=== PATIENT | male | born 1960 | race Two or more races ===

== ENCOUNTER 2024-04-22 05:21 | Inpatient (IN) | payer OTHER ==
[2024-04-15 09:26] LABS: HEMATOCRIT 40.4 % (39.0-48.0); HEMOGLOBIN 13.5 g/dL (13-16.00); MEAN CELL VOLUME 88.1 fL (80.0-100.00); MEAN CORPUSCULAR HEMOGLOBIN 29.5 pg (27.00-32.0); MEAN CORPUSCULAR HGB CONC 33.5 g/dl (32.0-36.0); PLATELET COUNT 233 K/uL (150-450); RED BLOOD COUNT 4.59 M/uL (4.00-6.00); RED CELL DISTRIBUTION WIDTH 13.2 % (11.5-14.5)
[2024-04-15 10:01] LABS: INR < 0.93; PARTIAL THROMBOPLASTIN TIME 27.4 SECONDS (22.0-34.0); PROTHROMBIN TIME 9.8 SECONDS (9.0-11.5)
[2024-04-15 10:20] LABS: CALCIUM 9.6 mg/dL (8.5-10.1); CREATININE SERUM 0.89 mg/dL (0.70-1.30); GFR 86.9; POTASSIUM 4.34 mEq/L (3.5-5.1)
[2024-04-15 10:23] LABS: URINE APPEARANCE Clear; URINE BILIRRUBIN Negative (NEGATIVE); URINE BLOOD Negative; URINE COLOR Yellow; URINE GLUCOSE Negative (NEGATIVE); URINE LEUKOCYTE Negative; URINE NITRATE Negative; URINE PROTEIN Negative (NEGATIVE); URINE UROBILINOGEN 0.2 E.U./dl
[2024-04-15 10:28] LABS: URINE BACTERIA 8.8 uL (0.0-1933); URINE RBC 19.9 uL (0.0-20.8); URINE WBC 2.7 uL (0.0-23.2)
[~2024-04-22] VITALS: Ht 185.4 cm; Wt 204.6 kg
[~2024-04-22 05:21] MED LIST: CLONAZEPAM0.25 MG
[2024-04-22] MEDS ORDERED: CEFAZOLIN SODIUM 1,000 MG VIAL ONE ×2 (06:30→19:34)
[2024-04-22] MEDS ORDERED: ENOXAPARIN SODIUM 40 MG/0.4 ML SYRINGE SUBCUTANEO ONE ×2 (06:30→09:30)
[2024-04-22] MEDS ORDERED: BUPIVACAINE HCL/MPF 0.5% 30ML VIAL ONE (08:05)
[2024-04-22] MEDS ORDERED: LIDOCAINE HCL 1%/EPINEPHRINE 20ML VIAL IJ ONE ×2 (08:05→09:30)
[2024-04-22] MEDS ORDERED: HEMOSTATIC MATRIX 1 KIT KIT TOP ONE ×2 (09:21→09:30)
[2024-04-22] MEDS ORDERED: SURGIFLO APPLICATOR 1 EACH APPL TOP ONE ×2 (09:22→09:30)
[2024-04-22] MEDS ORDERED: BUPIVACAINE HCL 30 ML VIAL IJ ONE (09:30)
[2024-04-22] MEDS ORDERED: CEFAZOLIN SODIUM 1,000 MG VIAL IV ONE (09:30)
[2024-04-22] MEDS ORDERED: SUGAMMADEX SODIUM 200 MG/2 ML VIAL IV ONE (10:23)
[2024-04-22] MEDS ORDERED: OxyCODONE HCL/APAP UD (PERCOCET) PO PRN (13:15)
[2024-04-22] MEDS ORDERED: RINGERS SOLUTION,LACTATED 1,000 ML IV SCH (13:15)
[2024-04-22] MEDS ORDERED: ONDANSETRON HCL 2 MG/ML VIAL IV PRN (13:15)
[2024-04-22] MEDS ORDERED: KETOROLAC TROMETHAMINE 30 MG VIAL ONE (16:01)
[2024-04-22] MEDS ORDERED: GABAPENTIN 300 MG CAPSULE PO SCH (17:00)
[2024-04-22] MEDS ORDERED: POLYETHYLENE GLYCOL 3350 17 GM BLIST.PACK PO SCH (17:00)
[2024-04-22] MEDS ORDERED: KETOROLAC TROMETHAMINE 30 MG VIAL IU SCH (17:00)
[2024-04-22] MEDS ORDERED: CEFAZOLIN SODIUM 1,000 MG VIAL IV SCH (18:00)
[2024-04-22] MEDS ORDERED: ENALAPRILAT DIHYDRATE 1.25 MG/ML VIAL IV ONE (19:34)
[2024-04-22] MEDS ORDERED: ENALAPRILAT DIHYDRATE 1.25 MG/ML VIAL IV PRN (19:45)
[2024-04-22] MEDS ORDERED: FAMOTIDINE/PF 20 MG/2 ML VIAL IV SCH (21:00)
[2024-04-22] MEDS ORDERED: CLONAZEPAM 0.5 MG TABLET PO SCH (21:00)
[2024-04-23 07:57] LABS: HEMOGLOBIN 11.4 g/dL (13-16.00); MEAN CELL VOLUME 85.8 fL (80.0-100.00); MEAN CORPUSCULAR HEMOGLOBIN 29.6 pg (27.00-32.0); MEAN CORPUSCULAR HGB CONC 34.5 g/dl (32.0-36.0); PLATELET COUNT 194 K/uL (150-450); RED BLOOD COUNT 3.85 M/uL (4.00-6.00)
[2024-04-23 08:45] LABS: ALBUMIN 3.3 gm/dL (3.4-5.0); CALCIUM 8.7 mg/dL (8.5-10.1); CREATININE SERUM 0.81 mg/dL (0.70-1.30); GFR 96.88; PHOSPHOROUS 2.7 mg/dL (2.5-4.9); POTASSIUM 3.96 mEq/L (3.5-5.1)
[2024-04-23] MEDS ORDERED: ENOXAPARIN SODIUM 40 MG/0.4 ML SYRINGE SUBCUTANEO SCH (09:00)
[2024-04-23] MEDS ORDERED: LOSARTAN POTASSIUM 50 MG TABLET PO SCH (09:37)
== END 2024-04-23 11:48 | disposition home or self-care (01) | DRG 708 ==
LOC: CIR.AMB 05:21 → O/R 13:28 → SURG 14:26
PROVIDERS: ADMIT Urology; ATTEND Urology
PROC: 8E0W4CZ Robotic Assisted Procedure of Trunk Region, Percutaneous Endoscopic Approach (ICD-10-PCS; 2024-04-22)
PROC: 0VT04ZZ Resection of Prostate, Percutaneous Endoscopic Approach (ICD-10-PCS; principal; 2024-04-22 07:00)
DX: C61 Malignant neoplasm of prostate (principal); Z20.822 Contact with and (suspected) exposure to COVID-19
CPT/HCPCS: 55866; S2900

== ENCOUNTER 2024-04-27 10:06 | Inpatient (IN) | payer OTHER ==
[~2024-04-27] VITALS: Ht 185.4 cm; Wt 90.7 kg
--- NOTE | 2024-04-27 10:20 | NUR ---
PACIENTE ALERTA Y ORIENTADO X3. REFIERE VENIR POR FIEBRE, TUVO CARISSA OPERACION EL MayIEMBRE DE REMOCION DE PROSTATA Y DR. EASON LES ORDENO QUE EN SHANIA DE PRESENTAR FIEBRE, VENIR A ER Y COMUNICARSE CON EL. SE ESTIMAN VITALES Y SE UBICA.
[2024-04-27] MEDS ORDERED: PIPERACILLIN/TAZOBACTAM SODIUM 3.375 GM VIAL IV ONE ×2 (11:00→11:03)
--- NOTE | 2024-04-27 11:29 | NUR ---
SE EDUCA A PTE SOBRE TX A RECIBIR EN EL AREA EL MISMO REFIERE ENTENDER. SE REALIZAN MUESTRAS BAJO MEDIDAS ASEPTICAS. SE CANALIZA PTE Y SE ADMINSITRA MEDIACION AMAYA ORDEN MEDICA. SE THAD PTE EN ESPERA DE RESULTADOS.
[2024-04-27 11:44] LABS: HEMATOCRIT 33.1 % (39.0-48.0); HEMOGLOBIN 11.3 g/dL (13-16.00); MEAN CELL VOLUME 87.1 fL (80.0-100.00); MEAN CORPUSCULAR HEMOGLOBIN 29.8 pg (27.00-32.0); MEAN CORPUSCULAR HGB CONC 34.2 g/dl (32.0-36.0); PLATELET COUNT 289 K/uL (150-450); RED CELL DISTRIBUTION WIDTH 12.6 % (11.5-14.5)
[2024-04-27] MEDS ORDERED: 0.9 % SODIUM CHLORIDE 1,000 ML IV SCH ×2 (12:00→19:45)
[2024-04-27 12:31] LABS: ALBUMIN 3.8 gm/dL (3.4-5.0); BILIRUBIN TOTAL 1.52 mg/dL (0.3-1.2); CALCIUM 9.6 mg/dL (8.5-10.1); CREATININE SERUM 0.82 mg/dL (0.70-1.30); GFR 95.51; GLOBULINA 4.2 G/DL (2.4-3.5); POTASSIUM 4.25 mEq/L (3.5-5.1)
[2024-04-27 12:47] LABS: PH,URINE 6.5 (5.0-8.0); URINE APPEARANCE Cloudy; URINE BILIRRUBIN Small (NEGATIVE); URINE BLOOD Large; URINE COLOR Orange; URINE GLUCOSE Negative (NEGATIVE); URINE KETONE 15 (NEGATIVE); URINE LEUKOCYTE Small; URINE NITRATE Positive
[2024-04-27 12:50] LABS: URINE CAST 3.51 uL (0.0-1.40); URINE EPITHELIAL CELLS 4.4 uL (0.0-38.8); URINE RBC 1545.2 uL (0.0-20.8); URINE WBC 299.4 uL (0.0-23.2)
[2024-04-27 12:55] LABS: URINE BACTERIA > 9821.5 uL (0.0-1933); URINE PROTEIN 100 (NEGATIVE)
[2024-04-27] MEDS ORDERED: ONDANSETRON HCL 4 MG in 0.9 % SODIUM CHLORIDE 50 ML IV PRN (19:45)
[2024-04-27] MEDS ORDERED: ACETAMINOPHEN 500 MG GEL..CAP PO PRN (19:45)
[2024-04-27 22:36] LABS: INR 0.95; PARTIAL THROMBOPLASTIN TIME 29.3 SECONDS (22.0-34.0)
[2024-04-28] MEDS ORDERED: PIPERACILLIN/TAZOBACTAM SODIUM 3.375 GM in DEXTROSE 5 % IN WATER 100 ML IV SCH
[2024-04-28] MEDS ORDERED: FAMOTIDINE/PF 20 MG in 0.9 % SODIUM CHLORIDE 8 ML IV PUSH SCH (09:00)
[2024-04-28] MEDS ORDERED: LOSARTAN POTASSIUM 50 MG TABLET PO SCH (09:00)
[2024-04-28] MEDS ORDERED: FAMOTIDINE/PF 20 MG/2 ML VIAL ONE (09:03)
[2024-04-28] MEDS ORDERED: CEFEPIME HCL 2,000 MG VIAL IV SCH (17:00)
[2024-04-28] MEDS ORDERED: VANCOMYCIN HCL 5 MG/ML REDILUIDO IV SCH (21:00)
[2024-04-30 08:39] LABS: URINE EPITHELIAL CELLS 2.9 uL (0.0-38.8); URINE RBC 65.6 uL (0.0-20.8); URINE WBC 23.7 uL (0.0-23.2)
[2024-04-30 08:43] LABS: HEMOGLOBIN 10.7 g/dL (13-16.00); MEAN CELL VOLUME 87.1 fL (80.0-100.00); MEAN CORPUSCULAR HEMOGLOBIN 30.1 pg (27.00-32.0); MEAN CORPUSCULAR HGB CONC 34.5 g/dl (32.0-36.0); PLATELET COUNT 334 K/uL (150-450); RED BLOOD COUNT 3.55 M/uL (4.00-6.00); RED CELL DISTRIBUTION WIDTH 12.5 % (11.5-14.5)
[2024-04-30 08:58] LABS: URINE BILIRRUBIN NEGATIVE (NEGATIVE); URINE BLOOD SMALL; URINE GLUCOSE NEGATIVE (NEGATIVE); URINE KETONE NEGATIVE (NEGATIVE); URINE LEUKOCYTE NEGATIVE; URINE NITRATE NEGATIVE; URINE PROTEIN NEGATIVE (NEGATIVE); URINE UROBILINOGEN 0.2 E.U./dl
[2024-04-30 09:00] LABS: URINE APPEARANCE CLEAR; URINE COLOR YELLOW
[2024-04-30] MEDS ORDERED: FAMOtidine 20 MG TABLET PO SCH (09:00)
[2024-04-30 09:51] LABS: ALBUMIN 3.3 gm/dL (3.4-5.0); BILIRUBIN TOTAL 0.74 mg/dL (0.3-1.2); CALCIUM 9.4 mg/dL (8.5-10.1); CREATININE SERUM 0.8 mg/dL (0.70-1.30); GFR 98.27; GLOBULINA 3.7 G/DL (2.4-3.5); MAGNESIUM 2.1 mg/dL (1.8-2.4); PHOSPHOROUS 3.4 mg/dL (2.5-4.9); POTASSIUM 4.3 mEq/L (3.5-5.1)
[2024-04-30 09:55] LABS: C-REACTIVE PROTEIN 4.06 MG/DL (0.00-0.29)
[2024-04-30] MEDS ORDERED: LINEZOLID 600 MG TABLET PO SCH (21:00)
== END 2024-05-01 11:20 | disposition home or self-care (01) | DRG 690 ==
LOC: ER 10:07 → MEDI 20:12
PROVIDERS: Emergency Medicine; General Practice; Internal Medicine Infectious Disease; ADMIT Internal Medicine; ATTEND Internal Medicine
DX: N39.0 Urinary tract infection, site not specified (principal); R65.10 Systemic inflammatory response syndrome (SIRS) of non-infectious origin without acute organ dysfunction; B96.5 Pseudomonas (aeruginosa) (mallei) (pseudomallei) as the cause of diseases classified elsewhere; F32.A Depression, unspecified